=== PATIENT | male | born 1975 | race Caucasian/White ===

== ENCOUNTER 2018-10-14 11:49 | Outpatient (CLI) | payer OTHER ==
--- NOTE | 2018-10-18 06:19 | XRAY Report ---
Reason: ILLNESS, UNSPECIFIED Procedure Date: 10/14/2018 Accession Number: [id number] / [id number] Procedure: XR - Lumbar Spine 2 View CPT Code: FULL RESULT: EXAM: LUMBOSACRAL SPINE RADIOGRAPHY EXAM DATE: 10/14/2018 12:06 PM. CLINICAL HISTORY: Back pain COMPARISONS: XR LUMBOSACRAL SPINE 4 VIEWS 05/02/2011 3:14 PM. TECHNIQUE: 3 views. FINDINGS: Alignment: Normal. No spondylolisthesis or scoliosis. Bones: Five [id number] lumbar vertebral bodies are present. No fractures or bone lesions. Disks: Normal. Disk heights are maintained. Facets: No degenerative changes. Sacroiliac Joints: Unremarkable. Soft Tissues: Normal. The visualized bowel gas pattern is normal. IMPRESSION: Normal lumbar spine radiography. [facility]
== END 2018-10-14 11:50 | disposition home or self-care (01) ==
LOC: DI 11:49
PROVIDERS: ATTEND Family Medicine
DX: R69 Illness, unspecified (principal)
CPT/HCPCS: 72100

== ENCOUNTER 2018-11-20 18:54 | Emergency (ER) | payer OTHER ==
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
[2018-11-20 20:38] VITALS: BP 140/82
== END 2018-11-20 20:33 | disposition home or self-care (01) ==
LOC: ED 18:54
DX: S16.1XXA Strain of muscle, fascia and tendon at neck level, initial encounter (principal); S39.012A Strain of muscle, fascia and tendon of lower back, initial encounter; V89.2XXA Person injured in unspecified motor-vehicle accident, traffic, initial encounter; Y92.488 Other paved roadways as the place of occurrence of the external cause
CPT/HCPCS: 99281; 99282